=== PATIENT | female | born 1955 | race Caucasian/White ===

== ENCOUNTER → 2016-05-31 | Outpatient (REF) | payer OTHER ==
[2016-05-31 21:19] LABS: ALBUMIN 3.9 GM/DL (3.2-5.2); ALBUMIN/GLOBULIN RATIO 1.22 (1.00-1.93); BILIRUBIN,TOTAL 0.8 MG/DL (0.2-1.0); CALCIUM LEVEL 9.4 MG/DL (8.8-10.2); CREATININE FOR GFR 1.02 MG/DL (0.55-1.02); GLOMERULAR FILTRATION RATE 58.5 (>45); MAGNESIUM LEVEL 1.4 MG/DL (1.8-2.4); PHOSPHORUS LEVEL 3.6 MG/DL (2.5-4.9); POTASSIUM SERUM 3.9 MEQ/L (3.5-5.1); TOTAL PROTEIN 7.1 GM/DL (6.4-8.2)
[2016-05-31 21:23] LABS: MEAN CORPUSCULAR HEMOGLOBIN 30.2 pg (27.0-33.0); MEAN CORPUSCULAR HGB CONC 34.2 g/dl (32.0-36.5); MEAN CORPUSCULAR VOLUME 88.4 fl (80.0-96.0); RED CELL DISTRIBUTION WIDTH 14.2 % (11.5-14.5); WHITE BLOOD COUNT 9.5 K/mm3 (4.0-10.0)
[2016-05-31 21:24] LABS: FREE T4 1.98 NG/DL (0.76-1.46)
[2016-05-31 21:46] LABS: ERYTHROCYTE SEDIMENTATION RATE 16 mm/hr (0-30)
[2016-05-31 21:56] LABS: BASOPHILS 1 % (0-4); EOSINOPHILS 1 % (0-5)
[2016-06-02 14:17] LABS: SJOGREN'S ANTI SS-A <0.2 AI (0.0-0.9); SJOGREN'S ANTI SS-B 1.8 AI (0.0-0.9)
== END ==
LOC: M SFHCLERA 15:37
PROVIDERS: ATTEND Family Medicine
DX: R25.2 Cramp and spasm (principal); R68.2 Dry mouth, unspecified; E03.9 Hypothyroidism, unspecified; Z13.1 Encounter for screening for diabetes mellitus
CPT/HCPCS: 80053; 83036; 83735; 84100; 84439; 84443; 85007; 85027; 85652; 86038; 86140; G0463

== ENCOUNTER → 2016-06-09 | Outpatient (CLI) | payer OTHER ==
--- NOTE | 2016-06-09 16:23 | REP ---
Digital diagnostic unilateral right breast mammography with CAD and focused right breast sonography: History: Screening mammography from 05/05/2016, was BIRADS category zero because of a nodular neodensity in the medial aspect of the right breast and possible artifactual finding laterally in the right breast. Diagnostic imaging was recommended. Findings: Magnified focal spot compression CC, MLO and true MLO views of the right breast were obtained. A non-magnified laterally exaggerated CC view is obtained as well. The lateral findings on screening mammography were artifactual and are not reproduced. There is however a somewhat spiculated irregular suspicious nodule in the superior and medial quadrant of the right breast confirmed on diagnostic imaging. This measures 9 mm in greatest diameter. Sonographic findings: The right breast is scanned from 12 o'clock to 3 o'clock through the upper outer quadrant. At 1 o'clock there is a hypoechoic mass with poorly defined margins measuring 0.7 x 0.5 x 0.5 cm, 6 cm from the nipple. This is felt to correspond to the mammographic opacity. It is sonographically suspicious as well. It is a long axis perpendicular to the skin. There is some acoustic shadowing. Impression: BIRADS category 5 highly suspicious right breast imaging. Solid irregular 0.7 cm nodular lesion in the superior medial quadrant. Ultrasound-guided needle biopsy with marker clip placement and post biopsy mammography recommended. BI-RADS/ACR category 5 mammogram. Highly suggestive of malignancy - appropriate action should be taken. Requires biopsy or surgical treatment. This mammogram was interpreted with the aid of an FDA-approved computer-aided detection system. The patient states that she/he has not had a clinical breast exam in over a year. The patient letter being requested is M4. Signed by Clay Khan MD 06/09/2016 04:25 P
== END ==
LOC: M RAD 13:55
PROVIDERS: ATTEND Family Medicine
DX: R92.8 Other abnormal and inconclusive findings on diagnostic imaging of breast (principal)
CPT/HCPCS: 76642; G0206

== ENCOUNTER → 2016-06-28 | Outpatient (CLI) | payer OTHER ==
[~2016-06-28] MED LIST: LIDOCAINE 1% MDV 20ML VIAL As Ordered ONE
--- NOTE | 2016-06-28 13:41 | REP ---
POST ULTRASOUND BIOPSY RIGHT MAMMOGRAM FOR CLIP PLACEMENT: 06/28/2016. Clinical history: Status post ultrasound-guided needle biopsy right breast upper outer quadrant nodule by ultrasound guidance. The two-view show a stereotactic clip deep and inferior to the nodule lateral to it in the upper outer quadrant, nodule now measures 6.4 mm maximum, on the prebiopsy images it is 7.6 mm. There is surrounding soft tissue hematoma in the breast. The nodule has been partially sampled. It is not completely evacuated. Ultrasound images showed the needle passing through the nodule. No other findings. Impression: 1. Status post ultrasound-guided needle biopsy nodule upper outer quadrant right breast with a part of that nodule sampled and with the needle seen passing directly through it by ultrasound. There is some adjacent hematoma in the surrounding breast parenchyma and the stereotactic clip was inferior, posterior and lateral to the nodule itself. I would recommend correlation with pathologic results to determine if anything else needs to be done at this time. Signed by Rian Garcia MD 06/28/2016 05:20 P
--- NOTE | 2016-06-28 16:46 | REP ---
ULTRASOUND GUIDED RIGHT BREAST BIOPSY: The procedure was performed under the direct supervision of Dr. Garcia. The patient has a history of a hypoechoic mass with poorly defined margins measuring 0.7 x 0.5 x 0.5 cm in the 1 o'clock position of the right breast seen on a previous ultrasound dated 06/09/2016. The risks and benefits of the procedure were explained to the patient and informed consent was obtained. The right breast mass was localized using ultrasound guidance. The skin was prepped and draped in a sterile fashion. 1% Xylocaine was used as a local anesthetic. Using ultrasound guidance a 13-gauge suction assisted Mammotome needle was inserted and 6 core biopsy samples were obtained and sent to the lab. A marker clip was placed at the biopsy site. The patient tolerated the procedure well and there were no immediate complications. After the appropriate amount of monitored convalescence the patient was discharged from the department. Reviewed by TIMOTHY Moss 06/29/2016 04:32 PEdited and Signed by Rian Garcia MD 06/29/2016 05:25 P
== END ==
LOC: M RADPRO 11:04
PROVIDERS: ATTEND Surgery
DX: C50.411 Malignant neoplasm of upper-outer quadrant of right female breast (principal); I10 Essential (primary) hypertension; E78.00 Pure hypercholesterolemia, unspecified; E07.9 Disorder of thyroid, unspecified; E11.9 Type 2 diabetes mellitus without complications; Z80.8 Family history of malignant neoplasm of other organs or systems; Z79.4 Long term (current) use of insulin; Z79.899 Other long term (current) drug therapy; F17.210 Nicotine dependence, cigarettes, uncomplicated
CPT/HCPCS: 19083; 88305; 88342; G0206

== ENCOUNTER → 2016-07-01 | Outpatient (REF) | payer OTHER ==
[2016-07-01 17:50] LABS: FREE T4 1.78 NG/DL (0.76-1.46)
== END ==
LOC: M SFHCLERA 12:13
PROVIDERS: ATTEND Family Medicine
DX: E03.9 Hypothyroidism, unspecified (principal); E11.9 Type 2 diabetes mellitus without complications

== ENCOUNTER → 2016-07-16 | Day surgery (SDC) | payer OTHER ==
[~2016-07-16] VITALS: Ht 167.6 cm; Wt 83.9 kg
[~2016-07-16] MED LIST changes: +BUPIVACAINE HCL 0.25% 30 ML VIAL As Ordered ONE; +FISH1000 PO; +HYDROmorphone HCL 1 MG/ML SYRINGE (J1170) IV PRN; +LEVO100T5 PO; +LIDOCAINE 2% INJ 100 MG/5 ML SDV (FOR ANES.) As Ordered ONE; +LIDOCAINE 5% (LIDODERM) PATCH TD ONE; +LOSA100T37 PO; +LOVA20TA2 PO; +LR 1,000 ML IV SCH; +MELO15TA4 PO; +METF500T PO; +METHYLENE BLUE 0.5% (5MG/ML) 10 ML AMP (PROVAYBLUE)(Q9968 PER 1MG) As Ordered ONE; +MIDAZOLAM INJ 2 MG/2 ML VIAL (J2250) As Ordered ONE; +NORCO, ANEXSIA 5/325MG TABLET (HYDROcodone/ACETAMINOPHEN) PO PRN; +ONDANSETRON 4MG/2ML VIAL (J2405) IV PRN; +PERCOCET 5MG/325MG TAB PO PRN; +PRENTAB55 PO; +PROPOFOL 200 MG/20 ML VIAL As Ordered ONE; +PROT1TAB2 PO; +RANI150T PO; +TOUJ1.2I SC; +VITA-113 SL; +VITA10006 PO; +VITA500046 PO; +XANA0.5T PO; +ZOFR8TAB PO; +fentaNYL 100 MCG/2 ML INJECTION (J3010) As Ordered ONE; +fentaNYL 100 MCG/2 ML INJECTION (J3010) IV PRN
--- NOTE | 2016-07-16 10:01 | ECGEPIP ---
Stationary ECG Study [facility] Test Date: 2016-07-16 Pat Name: LASHON HASSAN Department: Room: - Gender: F Manager Completions: : 1955 Requested By: Yon Mitchell Order Number: [id number] Reading MD: Kayla Calderon Measurements Intervals [place] Rate: 71 P: 32 CO: 169 QRS: 10 QRSD: 88 T: 45 QT: 390 QTc: 427 Interpretive Statements SINUS RHYTHM normal Electronically Signed On 07-16-2016 10:01:21 EST by Kayla Calderon
[2016-07-16] MEDS: HYDROmorphone HCL 1 MG/ML SYRINGE (J1170) IV PRN ×2 (15:01→15:10)
--- NOTE | 2016-07-16 16:05 | REP ---
RIGHT BREAST LOCALIZATION: The procedure was performed under the personal supervision of Dr. Khan. The patient has a history of a hypoechoic mass with poorly defined margins measuring 0.7 x 0.5 x 0.5 cm in the 1 o'clock position of the right breast seen on a previous ultrasound dated 06/09/2016. The mass was biopsied under ultrasound guidance on 06/28/2016. A marker clip was placed at the biopsy site. The risks and benefits of the procedure of the were explained to the patient and informed consent was obtained. A craniocaudal approach was utilized. The marker clip was localized using mammographic guidance. The skin was prepped and draped in a sterile fashion. 1% Xylocaine was used as a local anesthetic. A 7.5 cm [place] needle wire system was inserted. Followup mammographic images demonstrate good needle placement. The patient tolerated the procedure well and there were no immediate complications.
--- NOTE | 2016-07-16 16:09 | REP ---
RIGHT BREAST LYMPHOSCINTIGRAPHY: The procedure was performed under the direct supervision of Dr. Khan. The images were reviewed with Dr. Khan. The risks and benefits of the procedure were explained to the patient and informed consent was obtained. Using topical anesthetic and sterile technique, 1.029 millicuries of technetium 99 filtered sulfur colloid was injected subdermally in 8 fractionated periareolar injections. Images obtained 1 hour after injection showed gonzalo uptake in the axillary region on the right. IMPRESSION: Right breast lymphoscintigraphy. There is gonzalo uptake seen in the axillary region on the right. Reviewed by TIMOTHY Moss 07/16/2016 04:25 PEdited and Signed by Clay Khan MD 07/16/2016 05:19 P
--- NOTE | 2016-07-16 16:10 | REP ---
Specimen radiography right breast: Two views: History: Patient is status post needle localization directed excisional biopsy right breast for malignancy. Findings: Specimen radiographs demonstrate the previously positioned needle biopsy marker clip and a residual nodular density on either side of the localization wire centrally located within the breast specimen. Impression: Successful excision of the residual nodule and the needle biopsy marker clip. Signed by Clay Khan MD 07/16/2016 05:19 P
[2016-07-16 17:00] VITALS: BP 168/72
--- NOTE | 2016-07-19 10:11 | RO ---
DATE OF PROCEDURE: 07/16/2016 PREOPERATIVE DIAGNOSIS: Infiltrating lobular carcinoma right breast upper inner quadrant. POSTOPERATIVE DIAGNOSIS: Infiltrating lobular carcinoma right breast upper inner quadrant. PROCEDURE PERFORMED: 1. Right breast sentinel node biopsy. 2. Right partial mastectomy. SURGEON: Dr. lAfredo Landon SENIOR VICE PRESIDENT: Dr. Benito Levy ANESTHESIA: General. INDICATIONS FOR THE PROCEDURE: The patient is a 60-year-old woman who was found on routine mammography to have a small solid nodule in the upper inner aspect of the right breast. An ultrasound-guided biopsy confirmed invasive lobular carcinoma and she is now for a sentinel node biopsy and partial mastectomy with needle localization. OPERATIVE PROCEDURE: Prior to transport to the operating room, the patient was taken to the x-ray department where she underwent a needle localization of the lesion and marker clip in the upper inner quadrant of the right breast. She also underwent injection of a technetium labeled sulfur colloid with lymphoscintigraphy of the right axilla and breast. She was then transported back to the operating room. She was placed under general endotracheal anesthesia. At this point, I infiltrated approximately 5 mL of a methylene blue solution in the area of her known cancer and in the subcutaneous tissues around the upper outer aspect of the areola. The guidewire was identified entering the upper inner aspect of the right breast at about the 1:00 to 1:30 position, perhaps 6-7 cm from the edge of the areola. The patient's right breast, chest wall, axilla and upper extremity were then prepped and draped in a sterile fashion. The Neoprobe was used to examine the breast and axilla and a point of maximum gamma activity was noted fairly high in the axilla and slightly lateral. This site was marked on the skin. An approximately 3 cm transverse skin incision was made and deepened through the subcutaneous tissues using the electrocautery. The axillary fascia was opened. Dissection was then carried deeper into the axilla guided by the Neoprobe. The point of maximum gamma activity was isolated and dissected free. Small hemoclips were utilized as needed. A small clump of fibrofatty tissue containing a lymph node approximately 1 cm in diameter was removed. A 10-second gamma count was 3849. This was labeled as sentinel node #1. With further inspection with the NeoProbe, a second point of increased activity was identified which appeared to be slightly anterior and superior to the site of sentinel node #1. With further dissection, again, a small clump of fibrofatty tissue was identified. This contained an approximately 1-1/2 cm lymph node. A 10-second gamma count was 1204. This was labeled sentinel node #2. Further inspection of the axilla revealed no significant points of increased gamma activity. Background count was approximately 144 in 10 seconds. The two lymph nodes were sent for frozen section inspection. The axillary fascia was closed with a single suture of #3-0 Vicryl. The skin edges were brought into apposition with several buried #3-0 Vicryl sutures and the skin edges were approximated with a running subcuticular #4-0 Vicryl. The pathologist called to inform me that the frozen sections of both nodes showed no malignancy. I then addressed my attention to the partial mastectomy. The location of the wire within the breast had been reviewed. I elected to proceed with a radial excision of the breast tissue. I elected to begin the incision approximately 1-1/2 cm below the wire insertion site and carried this down just about to the edge of the areola. The skin was incised with a scalpel. The dissection was carried into the subcutaneous tissues using the cautery. The skin was elevated up to the wire insertion site and the wire was then delivered into the wound. The dissection was then carried down on both sides of the guidewire, leaving a margin of tissue on all sides of the guidewire. The incision was deepened down to the level of the pectoral fascia. The excision was extended toward the central aspect of the breast to encompass the tissue containing the guidewire. After excision, the tip of the guidewire was palpable at the central most and deepest point of the dissection. The specimen was laid out on a towel. Inspection showed that there was a firm nodule in about the midportion of the specimen. I would estimate this to be 1-1/2 to 2 cm in size. This did not appear to be definitely exposed on either the superior or inferior sides of the specimen, but the nodule was clearly palpable on both sides and I thought that the margin might be somewhat close. The specimen was marked using the Vector margin marker system. I would note that I reversed the use of the orange and yellow colors for medial and lateral the specimen. A [employer] picture of the specimen was obtained showing the guidewire going down the center of the specimen with the marker clip clearly identified. A second picture at 90 degrees confirmed the same. Clearly the appropriate area had been removed, but I was somewhat concerned about the superior and inferior margins. I therefore elected to remove an additional piece of tissue. What was removed was essentially a U-shaped portion of tissue that included fragments of the breast tissue on both the superior and inferior margins, including a portion at the lateral end of the specimen which was the inferior portion of the U. This was closed together with several silk sutures, one on the anterior aspect and two on the posterior aspect, leaving the area of concern where the previous margins would have laid on the inner aspect of this closed cavity. This was then also marked with the margin marker system. I did also call pathology and advise Dr. Reilly directly of the orientation of the second specimen so that she could better understand where the concerning margins would be. Both of these tissues were sent to pathology in formalin. The wound was inspected and hemostasis was ensured with the electrocautery. I then proceeded to perform a reconstruction of the area of the wound. The breast tissue was undermined widely at the superior and lateral and the inferomedial aspect of the cavity. This elevation was performed including the pectoral fascia and extended out about 5 cm on all sides. Once this had been performed, it was possible to close the breast tissue together, first at the fascial level with interrupted simple sutures of #2-0 Vicryl. Additional sutures were placed to close different layers of tissue, including the subcutaneous tissue. This nicely closed the defect in the breast. The subcutaneous tissues were approximated with buried #3-0 Vicryl, bringing the skin edges into nice approximation. The skin edges themselves were then closed with a running subcuticular #4-0 Vicryl and Steri-Strips. Approximately 10-15 mL of 0.25% Marcaine were infiltrated along the sides of the wound. The patient tolerated the procedures well. The wounds were dressed with a bulky bandage covering both incisions. This was held securely with tape. She was awakened in the operating room, extubated and moved to the recovery room in stable condition. MARQUITA
== END | disposition home or self-care (01) ==
LOC: M SDC 06:51
PROVIDERS: ATTEND Surgery
DX: C50.211 Malignant neoplasm of upper-inner quadrant of right female breast (principal); I10 Essential (primary) hypertension; E78.5 Hyperlipidemia, unspecified; E11.9 Type 2 diabetes mellitus without complications; Z79.4 Long term (current) use of insulin; E03.9 Hypothyroidism, unspecified; K21.9 Gastro-esophageal reflux disease without esophagitis; Z86.73 Personal history of transient ischemic attack (TIA), and cerebral infarction without residual deficits; F17.210 Nicotine dependence, cigarettes, uncomplicated; Z79.899 Other long term (current) drug therapy
CPT/HCPCS: 19125; 38525; 72265; 76098; 78195; 88305; 88307; 88331; 88342; 93005; A9541; J1170; J2250; J2405; J3010; Q9968

== ENCOUNTER → 2016-08-17 | Outpatient (REF) | payer OTHER ==
[~2016-08-17] MED LIST changes: -BUPIVACAINE HCL 0.25% 30 ML VIAL As Ordered ONE; -HYDROmorphone HCL 1 MG/ML SYRINGE (J1170) IV PRN; -LIDOCAINE 1% MDV 20ML VIAL As Ordered ONE; -LIDOCAINE 2% INJ 100 MG/5 ML SDV (FOR ANES.) As Ordered ONE; -LIDOCAINE 5% (LIDODERM) PATCH TD ONE; -LR 1,000 ML IV SCH; -METHYLENE BLUE 0.5% (5MG/ML) 10 ML AMP (PROVAYBLUE)(Q9968 PER 1MG) As Ordered ONE; -MIDAZOLAM INJ 2 MG/2 ML VIAL (J2250) As Ordered ONE; -NORCO, ANEXSIA 5/325MG TABLET (HYDROcodone/ACETAMINOPHEN) PO PRN; -ONDANSETRON 4MG/2ML VIAL (J2405) IV PRN; -PERCOCET 5MG/325MG TAB PO PRN; -PROPOFOL 200 MG/20 ML VIAL As Ordered ONE; -fentaNYL 100 MCG/2 ML INJECTION (J3010) As Ordered ONE; -fentaNYL 100 MCG/2 ML INJECTION (J3010) IV PRN
[2016-08-17 13:31] LABS: INR 0.99
== END ==
LOC: M LAB REF 12:58
PROVIDERS: ATTEND Internal Medicine Medical Oncology
DX: Z01.818 Encounter for other preprocedural examination (principal)

== ENCOUNTER → 2016-08-17 | Outpatient (CLI) | payer OTHER ==
--- NOTE | 2016-08-18 07:43 | RADONC ---
RADIATION ONCOLOGY CONSULTATION NOTE DATE: 08/17/2016 CHART NUMBER: [id number] DIAGNOSIS: Right breast cancer. STAGE: IA, [id number]. ECOG PERFORMANCE STATUS: 0. CONSULTATION NOTE: Ms. Lau is a very pleasant 60-year-old white female with the diagnosis of a stage IA, [id number] poorly differentiated invasive lobular carcinoma of the right breast who is presenting to us today for consultation regarding the possibilities of postoperative radiation therapy for conservative breast management following lumpectomy and sentinel lymph node biopsy. HISTORY OF PRESENT ILLNESS: The patient was in the usual state of health until routine mammogram done 05/05/2016 which was deemed incomplete. She returned for an ultrasound of her right breast on 06/09/2016. The ultrasound revealed a lesion measuring 0.7 cm x 0.5 cm x 0.5 cm, 6 cm from the nipple in the location from the 12 o'clock to the 3 o'clock position. It had poorly defined margins. On 07/16/2016 the patient underwent lumpectomy and sentinel lymph node sampling. Pathology revealed a 1.1 cm invasive lobular carcinoma which was poorly differentiated. The margins of resection were negative for malignancy. Two sentinel lymph nodes were sampled and both were negative for metastatic disease. The tumor was estrogen receptor and progesterone receptor positive and HER2 positive as well. The patient was seen by Dr. Oden in medical oncology this morning and it has been recommended that she receive systemic therapy prior to initiation of radiation. She is now here for a brief consultation aware that she will not be starting treatment here for approximately 3-4 months. PAST MEDICAL HISTORY: The patient's past medical history is positive for a mini stroke, hypertension, diabetes, hypothyroidism and menstrual irregularities. She has a history of bronchitis. The patient had a hysterectomy as well as a cholecystectomy in the past. She reports that an ovarian cyst had been removed. ALLERGIES: The patient is allergic to MORPHINE and CODEINE. SOCIAL HISTORY: The patient has smoked one and a half packs of cigarettes per day for 50 years. She drinks alcohol socially. FAMILY HISTORY: The patient's family history is positive for aunts with leukemia as well as a grandson with leukemia. REVIEW OF SYSTEMS: The patient's review of systems is positive for some loss of visual acuity. She also has some decreased energy. It is otherwise noncontributory. She denies nausea, vomiting, fevers, chills, night sweats, diplopia, headaches, anxiety or depression, anorexia, weight loss, visual disturbances, chest pain, urinary or bowel difficulties, bone pain, or neurological problems. PHYSICAL EXAMINATION: The patient is a well-developed, well-nourished, female in no acute distress. HEENT exam is normocephalic, atraumatic. Extraocular movements are intact. There is no palpable cervical, supraclavicular, infraclavicular, axillary, or inguinal lymphadenopathy present. Lungs are clear to auscultation and percussion. Heart has a regular rate and rhythm. Abdomen is benign with no hepatosplenomegaly, masses, or tenderness. Breast examination reveals no masses or discharge bilaterally. Skeletal examination reveals no tenderness to pressure or percussion of the bony skeleton. Extremities reveal no clubbing, cyanosis, or edema. Neurologic exam is grossly intact, as is the remainder of the physical examination. ASSESSMENT: Ms. Lau is presenting to us today with a stage IA, [id number] poorly differentiated invasive lobular carcinoma status post lumpectomy and sentinel lymph node biopsy for consideration of postoperative radiation therapy for conservative breast management and cure. Clearly the patient is a candidate for this treatment and I have so informed her. I have discussed with the patient in detail the potential benefits as well as possible acute and chronic sequelae of external beam radiation therapy. We discussed the logistics of treatment planning, simulation subsequent fractionated daily radiation treatments. The patient is being scheduled for systemic therapy and she tells us that her medical oncologist will be treating her for 12 weeks. We have therefore set her up for routine followup in our office in approximately 3 months. From there we can further consult with her and provide her further information. Will begin treatment planning at that point. Thank you for allowing us to participate in the care of this very pleasant woman. If I could be of any further assistance or provide you with any information, please free to contact me anytime. cc: MD Alfredo Jean MD *Gaby Reynolds MD
== END ==
LOC: M ONCR 10:19
PROVIDERS: ATTEND Radiology Radiation Oncology
DX: C50.911 Malignant neoplasm of unspecified site of right female breast (principal)
CPT/HCPCS: 85610; 85730; G0463

== ENCOUNTER → 2016-08-20 | Outpatient (CLI) | payer OTHER ==
--- NOTE | 2016-08-20 17:02 | ECHO ---
DATE OF PROCEDURE: 08/20/2016 REFERRING PHYSICIAN: Dr. Sarah Oden INDICATION: Chemotherapy drugs that may affect the heart, breast cancer. HEIGHT: 168 cm. WEIGHT: 85.7 kg. MEASUREMENTS: Left atrium: 3.6 Aortic root: 3.1 cm Ventricular septum: 1.21 cm Posterior wall: 0.94 cm LVOT: 1.09 cm Central venous pressure: 5-10 mmHg DOPPLER MEASUREMENTS: Aortic valve velocity: 117 cm/s LVOT velocity: 91.0 cm/s LVOT VTI: 21.7 cm. Mitral E velocity: 76.0 cm/s Mitral A velocity: 87.9 cm/s Mitral deceleration time: 201 ms Pulmonary artery systolic pressure: 22 mmHg by pulmonary acceleration time method. MITRAL ANNULAR TISSUE DOPPLER: E-prime septal: 5.8 cm/s E-prime lateral: 8.4 cm/s DESCRIPTION: The rhythm was sinus. This was a moderately technically difficult echocardiogram. No pericardial effusion. CONCLUSIONS: 1. Normal left ventricle internal dimensions. Left ventricle baseline anterior septum at the upper limits of normal in size to very slightly thickened. Normal wall thickness elsewhere. No regional wall motion abnormalities. Normal left ventricle (LV) systolic function. Left ventricular ejection fraction (LVEF) 65% by visual estimate. Grade 1 LV diastolic dysfunction. 2. Mild aortic valve sclerosis of a three-cuspid aortic valve. 3. Moderately technically difficult echocardiogram. 4. Otherwise unremarkable appearing echocardiogram.
== END ==
LOC: M CARPUL 15:15
PROVIDERS: ATTEND Internal Medicine Medical Oncology
DX: C50.919 Malignant neoplasm of unspecified site of unspecified female breast (principal); R94.31 Abnormal electrocardiogram [ECG] [EKG]

== ENCOUNTER → 2016-09-09 | Day surgery (SDC) | payer OTHER ==
[~2016-09-09] VITALS: Ht 167.6 cm; Wt 83.9 kg
[~2016-09-09] MED LIST changes: +HEPARIN SOD (PORCINE) 5000 UNITS/ML VIAL As Ordered ONE; +LIDOCAINE 1% SDV INJ 30 ML VIAL As Ordered ONE; +LIDOCAINE 2% INJ 100 MG/5 ML SDV (FOR ANES.) As Ordered ONE; +LR 1,000 ML IV SCH; +MIDAZOLAM INJ 2 MG/2 ML VIAL (J2250) As Ordered ONE; +NORCO, ANEXSIA 5/325MG TABLET (HYDROcodone/ACETAMINOPHEN) As Ordered ONE; +NORCO, ANEXSIA 5/325MG TABLET (HYDROcodone/ACETAMINOPHEN) PO PRN; +ONDANSETRON 4MG/2ML VIAL (J2405) As Ordered ONE; +PROPOFOL 200 MG/20 ML VIAL As Ordered ONE; +fentaNYL 100 MCG/2 ML INJECTION (J3010) As Ordered ONE
--- NOTE | 2016-09-09 15:28 | REP ---
Chest one-view HISTORY: Grrotm-G-Ffle catheter insertion Comparison: 03/22/2016 The lungs are clear. The heart is normal in size. The pulmonary vasculature is normal in appearance. An Ukrrmy-G-Ibaz catheter is present in the superior vena cava. There is no pneumothorax. Impression: No acute disease. Signed by Francisco Gibbs MD 09/09/2016 03:20 P
[2016-09-09 15:40] VITALS: BP 168/79
--- NOTE | 2016-09-10 05:47 | REP ---
FLUOROSCOPIC GUIDANCE FOR JHBNAO-I-PJQR PLACEMENT: 09/09/2016. Clinical history: breast cancer for Logxvi-E-Gfmy placement. Findings: A single image from C-arm fluoroscopy supplied to Dr. Landon of the surgery department for a left subclavian Jbbjhs-I-Zngj placement. Single view shows the upper mediastinum with the catheter extending down the jugular vein crossing the left brachiocephalic vein and terminating in the SVC. Fluoroscopy time 27 seconds. Signed by Rian Garcia MD 09/10/2016 04:34 P
--- NOTE | 2016-09-10 14:16 | RO ---
DATE OF PROCEDURE: 09/09/2016 PREOPERATIVE DIAGNOSIS: Right breast carcinoma for chemotherapy. POSTOPERATIVE DIAGNOSIS: Right breast carcinoma for chemotherapy. PROCEDURE PERFORMED: Insertion of a left internal jugular vein [id number] with ultrasound and fluoroscopic guidance. The Kdicso-I-Iarg placed was a Bard port Diglkj-D-Mzlt, reference number [id number], lot number [id number]. SURGEON: Dr. Alfredo Landon FRONT DESK ADMINISTRATOR: ANESTHESIA: Local of 1% Xylocaine with monitored anesthesia care. INDICATIONS FOR THE PROCEDURE: The patient is a 60-year-old woman who recently underwent a partial mastectomy and sentinel node biopsy for right breast cancer. She will be starting chemotherapy and is now for placement of a left internal jugular vein [id number]. OPERATIVE PROCEDURE: The patient was placed supine on the operating table. The patient's neck and upper chest were prepped and draped in a sterile fashion. She received sedation from anesthesia. The [facility] ultrasound was used to inspect the left side of the neck and the left internal jugular vein and carotid artery were clearly identified. Local anesthesia was achieved with 1% Xylocaine. An 18-gauge needle was then inserted under ultrasound guidance. Initially, there was a little difficulty gaining access to the vein and I selected a site approximately 1-2 cm higher up in the neck. From this location, the needle was inserted readily into the vein. There was excellent venous return with the patient in Trendelenburg position. Fluoroscopic exam revealed the guidewire passing into the right subclavian vein. Under fluoroscopic guidance, the guidewire was pulled back and reinserted and advanced readily down the superior vena cava. The patient was placed back in a Trendelenburg position and the peel-away sheath introducer was inserted. The catheter was then advanced to approximately 25 cm. The catheter flushed easily though blood would not return. Under fluoroscopic guidance, the catheter was withdrawn somewhat. When withdrawn to approximately 14 or 15 cm, the catheter seemed to extend toward the right subclavian vein again. However, when it was advanced farther, if it did not allow aspiration of blood readily. I settled on a site of 15 cm at the skin surface. Attention was turned to creating the port pocket. With additional local anesthesia an approximately 3 cm transverse incision was made inferior to the clavicle and a subcutaneous pocket was created. Hemostasis was ensured with the cautery. The catheter was tunneled down to the port site using the provided tunneler. Inspection showed that the catheter had been slightly withdrawn to approximately 13-14 cm. Fluoroscopy was again performed and the catheter was slightly advanced, but as I attempted to advance it, it appeared from the imaging that this was extending probably into the azygos vein. Therefore, it was pulled back slightly and ultimately was left at approximately 14-15 cm at the skin surface, which appeared to give good position within the superior vena cava. The catheter was cut to length and attached to the Ahffdk-H-Mtzs with the locking ring. The port was placed in the pocket and sutured to the underlying fascia with two simple sutures of #3-0 Vicryl. The subcutaneous tissues were closed with Vicryl and the skin edges with a running subcuticular #5-0 Vicryl. The small neck incision was also closed with a buried Vicryl. Steri-Strips were applied followed by two small OpSites. The port was flushed with 100 units/mL heparin solution. The patient tolerated the procedure well. She was awakened and transported to advanced recovery in stable condition.
== END | disposition home or self-care (01) ==
LOC: M SDC 11:53
PROVIDERS: ATTEND Surgery
DX: C50.911 Malignant neoplasm of unspecified site of right female breast (principal); Z46.89 Encounter for fitting and adjustment of other specified devices; E11.9 Type 2 diabetes mellitus without complications; I10 Essential (primary) hypertension; E78.5 Hyperlipidemia, unspecified; K57.32 Diverticulitis of large intestine without perforation or abscess without bleeding; Z86.73 Personal history of transient ischemic attack (TIA), and cerebral infarction without residual deficits; F17.210 Nicotine dependence, cigarettes, uncomplicated; E23.0 Hypopituitarism; Z79.899 Other long term (current) drug therapy; Z88.5 Allergy status to narcotic agent
CPT/HCPCS: 36561; 71010; 76000; C1788; J0690; J2250; J2405; J3010

== ENCOUNTER → 2016-10-15 | Outpatient (REF) | payer OTHER ==
[~2016-10-15] MED LIST changes: -HEPARIN SOD (PORCINE) 5000 UNITS/ML VIAL As Ordered ONE; -LIDOCAINE 1% SDV INJ 30 ML VIAL As Ordered ONE; -LIDOCAINE 2% INJ 100 MG/5 ML SDV (FOR ANES.) As Ordered ONE; -LR 1,000 ML IV SCH; -MIDAZOLAM INJ 2 MG/2 ML VIAL (J2250) As Ordered ONE; -NORCO, ANEXSIA 5/325MG TABLET (HYDROcodone/ACETAMINOPHEN) As Ordered ONE; -NORCO, ANEXSIA 5/325MG TABLET (HYDROcodone/ACETAMINOPHEN) PO PRN; -ONDANSETRON 4MG/2ML VIAL (J2405) As Ordered ONE; -PROPOFOL 200 MG/20 ML VIAL As Ordered ONE; -fentaNYL 100 MCG/2 ML INJECTION (J3010) As Ordered ONE
[2016-10-15 17:33] LABS: FREE T4 1.27 NG/DL (0.76-1.46)
== END ==
LOC: M SFHCLERA 11:23
PROVIDERS: ATTEND Family Medicine
DX: E05.80 Other thyrotoxicosis without thyrotoxic crisis or storm (principal); E11.9 Type 2 diabetes mellitus without complications
CPT/HCPCS: 83036; 84439; 84443; G0463

== ENCOUNTER → 2016-11-19 | Outpatient (CLI) | payer OTHER ==
[~2016-11-19] MED LIST changes: -LOSA100T37 PO; +LOSA100T5 PO; -METF500T PO; +METF500T13 PO
--- NOTE | 2016-11-19 19:46 | ECHO ---
DATE OF PROCEDURE: 11/19/2016 REFERRING PROVIDER: Dr. Lui PATIENT LOCATION: Outpatient REASON FOR ECHOCARDIOGRAM: Chemotherapy drug monitoring. 2D MEASUREMENTS: IVS: 1.3 cm LV: 4.0 cm LVPW: 1.2 cm LA: 3.6 cm Aorta: 2.8 cm IVC: 1.4 cm DOPPLER MEASUREMENTS: Peak velocity across the aortic valve: 1.3 m/s Peak velocity across the LVOT: 1.1 m/s Mitral E: 0.98 Mitral A: 1.1 Ratio 0.9 2D COMMENTS: 1. Normal left ventricular size and systolic function. They appear to be mildly increased left ventricular wall thickness. The estimated global left ventricular systolic ejection fraction is 65% to 70%. 2. Normal left atrium. Normal right atrium and right ventricle. 3. The atrial septum appeared to be normal without evidence of defect or shunt. 4. Normal aortic root. 5. No pericardial effusion seen. 6. The aortic valve, mitral valve, tricuspid valve appear to be normal. The pulmonic valve and proximal pulmonary artery branches were not well visualized. 7. The inferior vena cava was normal in size, central venous pressure is probably normal. DOPPLER: It detects only trace mitral regurgitation. Abnormal relaxation pattern was noted across the mitral valve leaflets as well as the mitral valve annulus consistent with grade 1 left ventricular diastolic dysfunction. IMPRESSION: 1. Normal global left ventricular systolic function. There are features of left ventricular diastolic dysfunction, grade 1. Mild concentric left ventricle hypertrophy. 2. Trace mitral regurgitation. 3. The last echocardiogram was on 08/10/2016, no remarkable changes. MTDD
== END ==
LOC: M CARPUL 10:07
PROVIDERS: ATTEND Nurse Practitioner Family
DX: Z51.11 Encounter for antineoplastic chemotherapy (principal); C50.919 Malignant neoplasm of unspecified site of unspecified female breast